=== PATIENT | female | born 1990 | race Caucasian/White ===

== ENCOUNTER 2016-07-07 09:02 | Inpatient (IN) | payer BC ==
[~2016-07-07] VITALS: Ht 152.4 cm; Wt 93.4 kg
[2016-07-07] VITALS (7 sets, daily range): BP systolic 115–133; BP diastolic 67–81
[~2016-07-07 09:02] MED LIST: FLINTSTONES WIT18 MG PO; PERCOCET 5/31 TABLET PO; PROCTOFOAM-HC10 GM PR
[2016-07-07 10:11] LABS: EOSINOPHIL (%) 0.2 % (0-5); HEMATOCRIT 39.8 % (36.0-46.0); IMMATURE GRANULOCYTE (%) 0.5 % (0.0-0.7); IMMATURE GRANULOCYTE COUNT 0.1 K/uL; INSTRUMENT ABS NEUTROPHIL CT 7.8 K/uL; LYMPHOCYTE COUNT 1.5 K/uL (1.0-2.8); MCHC 32.9 G/DL (30.0-36.0); MCV 91.1 FL (83-99); MEAN PLAT.VOLUME 9.9 uM^3 (9.5-12.4); MONOCYTE (%) 6.3 % (3-12); MONOCYTE COUNT 0.6 K/uL (0-0.8); NEUTROPHIL (%) 77.6 % (45-76); NEUTROPHIL COUNT 7.8 K/uL (1.8-6.4); PLATELET COUNT 254 K/uL (156-360); RBC DIS.WIDTH-CV 12.9 % (11.8-14.6); RBC DIS.WIDTH-SD 42.2 % (39-53); RED BLOOD COUNT 4.37 M/uL (3.80-5.20)
[2016-07-08 08:27] VITALS: BP 119/68
[2016-07-08 16:16] VITALS: BP 123/75
[2016-07-08 23:25] VITALS: BP 111/66
[2016-07-09 07:21] VITALS: BP 95/53
[2016-07-09 08:56] VITALS: BP 122/75
== END 2016-07-09 13:15 | disposition home or self-care (01) | DRG 775 ==
LOC: LDRP-OP 09:02 → 2WEST 09:03 → LDRP-OP 08-05 16:14
PROVIDERS: Nurse Practitioner
PROC: 10E0XZZ Delivery of Products of Conception, External Approach (ICD-10-PCS; principal; 2016-07-07)
DX: O99.824 Streptococcus B carrier state complicating childbirth (principal); O99.214 Obesity complicating childbirth; E66.9 Obesity, unspecified; Z68.30 Body mass index [BMI] 30.0-30.9, adult; Z3A.40 40 weeks gestation of pregnancy; Z37.0 Single live birth
CPT/HCPCS: 85025; C1755; J2540; J7120